=== PATIENT | female | born 1965 | race Caucasian/White ===

== ENCOUNTER 2016-12-20 15:17 | Emergency (ER) | payer OTHER ==
[~2016-12-20] VITALS: Ht 172.7 cm; Wt 63.5 kg
[~2016-12-20 15:17] MED LIST: CEFTIN500 MG PO; CYMBALTA30 MG PO; LOPRESSOR 25MG.25 MG PO; MULTI VITAMINS1 TAB PO; NAPROXEN SODIU500 MG PO; PHENAZOPYRIDIN200 MG PO; PRILOSEC20 M1 PO; VITAMIN C500 M3; XANAX 0.25MG0.25 MG PO; ZOFRAN ODT4 MG PO
[2016-12-20] MEDS ORDERED: NEURONTIN 300M300 MG PO (15:33)
[2016-12-20] MEDS ORDERED: IMITREX 25MG TA25 MG PO (15:34)
[2016-12-20 15:35] LABS: URINE BILIRUBIN - DIPSTICK NEGATIVE (NEG); URINE BLOOD NEGATIVE (NEG)
[2016-12-20] MEDS ORDERED: FLEXERIL10 MG PO (15:35)
--- OUTSIDE RECORDS SUMMARY | 2016-12-20 15:42 | External Medical Summary Rpt ---
Author Author [facility] Organization [facility] Address Unknown Phone Unavailable Care Team Providers Care Rat Exterminator Name Role Phone PHY, UNKNOWN PCP Unavailable Encounter [facility] [id number] Date(s): 10/12/16 - 10/12/[address] [place] [address]- Discharge Diagnosis: Migraine Discharge Diagnosis: Photophobia Discharge Diagnosis: Nausea Discharge Diagnosis: Headache Discharge Disposition: OP Self Care or Home Attending Physician: BLANK SIMS MD-EMR Admitting Physician: BLANK SIMS MD-EMR Referring Physician: BLANK SIMS MD-EMR Reason for Visit MIGRAINE, UNSP, NOT INTRACTABLE, WITHOUT STATUS MIGRAINOSUS Vital Signs Most recent 1 2 3 to oldest [Reference Range]: Temperature Oral Source (10/12/16 3:47 PM) Temperature Fahrenheit Mode (10/12/16 3:47 PM) Temperature, 98.3 Deg F Fahrenheit (10/12/16 3:47 PM) [96.8-99.7 Deg F] Clinical 36.8 Deg C Temperature, (10/12/16 3:47 PM) C Peripheral 90 bpm (10/12/16 84 bpm 77 bpm Pulse Rate 11:25 PM) (10/12/16 7:31 PM) (10/12/16 3:47 PM) [60-100 bpm] Respiratory 16 Breaths/Min 16 Breaths/Min 17 Breaths/Min Rate [14-20 (10/12/16 11:25 (10/12/16 7:31 PM) (10/12/16 3:47 PM) Breaths/Min] PM) Blood 121/60 mmHg 127/60 mmHg 115/64 mmHg Pressure (10/12/16 11:25 (10/12/16 7:31 PM) (10/12/16 3:47 PM) [90-140/60-9 PM) 0 mmHg] Mean 80 mmHg (10/12/16 82 mmHg Arterial 11:25 PM) (10/12/16 7:31 PM) Pressure (MAP) Oxygen 100 % (10/12/16 100 % 100 % Saturation 11:25 PM) (10/12/16 7:31 PM) (10/12/16 3:47 PM) [94-100 %] Oxygen Room air (10/12/16 Room air Room air Therapy Mode 11:25 PM) (10/12/16 7:31 PM) (10/12/16 3:47 PM) Problem List No data available for this section Allergies, Adverse Reactions, Alerts No Known Medication Allergies Medications ondansetron (Zofran ODT 4 mg oral tablet, disintegrating)1 Tab, Oral, Three Times A Day, 3 Day(s), Refills: 0Ordering provider: CONSTANZA MONTES MD-EMR Results No data available for this section Immunizations No data available for this section Procedures No data available for this section Social History No data available for this section Assessment and Plan No data available for this section Hospital Discharge Instructions Patient EducationNausea, Adult Recurrent Migraine Headache
--- OUTSIDE RECORDS SUMMARY | 2016-12-20 15:42 | External Medical Summary Rpt ---
Author Author [facility] Organization [facility] Address Unknown Phone Unavailable Care Team Providers Care Marketing Strategist Name Role Phone PHY, UNKNOWN PCP Unavailable Encounter [facility] [id number] Date(s): 10/12/16 - 10/12/[address] [facility] [place] [address]- [phone] Discharge Diagnosis: Migraine Discharge Diagnosis: Photophobia Discharge [...]
--- OUTSIDE RECORDS SUMMARY | 2016-12-20 15:43 | External Medical Summary Rpt | CCD ---
Author Author , ANGELO STEPHENS Address Unknown Phone [email or web address] Purpose Continuity of Care Document - through 2016 Problems Code Diagnosis DOS Provider Status G43.909 MIGRAINE, UNSP, NOT INTRACTABLE , WITHOUT STATUS MIGRAINOSUS
--- OUTSIDE RECORDS SUMMARY | 2016-12-20 15:43 | External Medical Summary Rpt | CCD ---
Author Author , ANGELO STEPHENS Address Unknown Phone [email or web address] Purpose Continuity of Care Document - through 2016 Problems Code Diagnosis DOS Provider Status G43.909 MIGRAINE, UNSP, NOT INTRACTABLE , WITHOUT STATUS MIGRAINOSUS
--- OUTSIDE RECORDS SUMMARY | 2016-12-20 15:44 | External Medical Summary Rpt | CCD ---
Demographics Preferred Language Turkish Marital Status Unknown Hoahaoism Affiliation Unknown Race Unknown Ethnic Group Unknown Author Author , ANGELO STEPHENS Address Unknown Phone Immunization No patient found.
--- OUTSIDE RECORDS SUMMARY | 2016-12-20 15:44 | External Medical Summary Rpt ---
Author Author ANGELO Palma, [employer] Organization [employer] Address Unknown Phone Unavailable
--- OUTSIDE RECORDS SUMMARY | 2016-12-20 15:44 | External Medical Summary Rpt | CCD ---
Demographics Preferred Language Mohawk Marital Status Unknown Episcopal Affiliation Unknown Race Unknown Ethnic Group Unknown Author Author , ANGELO STEPHENS Address Unknown Phone Immunization No patient found.
[2016-12-20 15:48] LABS: URINE SQUAMOUS CELLS OCC #/hpf (0-5)
--- NOTE | 2016-12-20 15:58 | Emergency Room Report ---
History of Present Illness Time Seen by 1524 Presenting Problem in Triage Pt arrived:Walked Presenting Problem:pt c/o of RIGHT ABDOMINAL PAIN THAT RADIATES ACROSS THE LOWER PORTION OF HER ABDOMNEN. [facility] [place] NEGATIVE FOR UTI BUT WAS REFERRED TO ER. Onset of symptoms date/time:12/20/16 or onset unknown for: Treatment Prior to Arrival: PT WAS SEEN AT AN URGENT TREATMENT AND WAS REFERRED TO ER APPLICATION SUPPORT TECHNICIAN Provided by:SELF Sepsis Risk Assessment: Temp: 98.7 B/P: 144/78 MAP: 100 Pulse: 86 Resp: 18 Recent fever? N Clinical Suspician of Infection? N Mental Status: 1 - Regular (Normal Baseline) Sepsis Risk:Low Sepsis Risk Have you (or family members/close friends) recently traveled outside the [place]? N If Yes, where/when: Have you had exposure to infectious disease within the past month? N TB? Other? Specify: R flank pain, intermittently since last night, with difficulty initiating stream ; pain now in RLQ radiating to urethral meatus. No hematuria, Seen at [facility] and referred to ED as did not have UTI per patient report to us. No fever; having some nausea but no vomiting; no change in stool habits; no blood from above or below; has intermittent migraine hx but no cephalgia today. No fever or chills. ALLERGIES Coded Allergies: eletriptan (From RELPAX) (TIGHTNESS AND TINGLING IN THROAT 05/16/16) tramadol (INSTRUCTED TO NOT TAKE R/T SEIZURE HX 05/16/16) Home Medications Reported Medications Gabapentin (Neurontin 300MG) 300 MG PO QID Sumatriptan Succinate (Imitrex 25MG Tablet) 50 MG PO ONCE PRN FOR HEADACHES Cyclobenzaprine Hcl (Flexeril) 5 MG PO TID PRN MUSCLE RELAXANT OMEPRAZOLE MAGNESIUM (Prilosec 20MG) 20 MG PO DAILY #30 TAB DULOXETINE HCL (Cymbalta 30MG) 30 MG PO DAILY Metoprolol Tartrate (Lopressor) 25 MG PO DAILY Alprazolam (Xanax 0.25MG) 0.25 MG PO TID Ascorbic Acid (Vitamin C) Multiple Vitamin (Multi Vitamins) 1 TAB PO DAILY History Medical History General CAD? No Angina: No [place]: No Hypertension? No Hyperlipidemia? No CHF? No DVT? No PE? No COPD? No Asthma? No Anemia? No GERD? Yes Gastric ulcers? No GI Bleed? No Hernia? Yes Thyroid Problems? No Hypothyroidism? No CVA? No Seizures? Yes Diabetes? No Renal Insuffiency? No End Stage Renal Disease? No UTI? No Stones? No BPH? No GB Disease: No Nephritic Syndrome? No Asplenia? No Hepatitis? No Sickle Cell Disease? No Arthritis? Yes Migraines? Yes Cataracts? No Glaucoma? No MRSA? No HIV? No TB? No Anxiety? No Depression? No Cancer? No More? Yes Additional hx: MITRAL VALVE PROLAPSE Immunization Hx DT/Tetanus Unknown Surgical Hx Previous Surgery?Y TONSILLECTOMY 1970 [employer] Hx LMP menopause Social History Smoking Hx Smoker: Never Smoker Tobacco: No Alcohol Alcohol: No Review of Systems All Other Systems Reviewed and Negative Gastrointestinal see HPI Genitourinary see HPI (post menopausal). Physical Exam Vital Signs Vital Signs Date Time Temp Pulse Resp B/P Pulse O2 O2 Flow FiO2 Ox Delivery Rate 12/20 192 99.2 101 18 129/60 100 12/20 1840 80 16 140/60 99 12/20 1622 16 12/20 1525 98.7 86 18 144/78 99 General Appearance normal appearance, WD/WN, mild distress Eye Exam - bilateral eye normal exam, bilateral eye PERRL Neck normal inspection, non-tender, supple, full range of motion Respiratory Status Yes: trachea midline, chest symmetrical, non tender chest. No: respiratory distress, tender on palpation, use of accessory muscles, pain on inspiration, pain on expiration, productive cough. Lung Sounds bilateral: normal breath sounds, lungs clear. Cardiovascular normal exam, regular rate/rhythm, no peripheral edema, no gallop, no JVD, no murmur, no rub, normal peripheral pulses Gastrointestinal normal bowel sounds, normal exam, non tender, soft, no organomegaly, no pulsatile mass, no guarding, no rebound Back normal inspection, no CVA tenderness, no vertebral tenderness, bowel/ bladder continent, gait normal, strt leg raising(L)-NML, strt leg raising(R)-NML Extremities normal range of motion Strength 5 Upper Ext (L), 5 Upper Ext (R), 5 Lower Ext (L), 5 Lower Ext (R) Neurologic alert, normal exam, no motor/sensory deficits, abnormal cerebellar tests Glascow Coma Scale Glascow Coma Scale Response Value EYE response: 4 Spontaneously 4 MOTOR response: 6 OBEYS 6 VERBAL response: 5 Oriented & Converses 5 Total 15 Reflexes Reflexes normal Yes DTR 2+ ankle (R), 2+ ankle (L) Skin intact, normal color, no rash cons.w/shingles Medical Decision Making LABS/Meds/Orders Pt receiving controlled substance in ED? Yes Francisco was queried for this patient? Yes Reference #: [id number] Risks/benefits of using a controlled substance for treatment were discussed w/pt by me Results/Orders Laboratory Tests 12/20/16 1640: Sodium 138, Potassium 3.7, Chloride 101, Carbon Dioxide 28, BUN 11, Creatinine 0.7, Estimated Creat Clear 94, Estimated GFR (MDRD) 88, Glucose 99, Calcium 8.6, Total Bilirubin 0.4, AST 35, ALT 56, Alkaline Phosphatase 79, Total Protein 7.4, Albumin 3.9, Globulin 3.5 H, Albumin/Globulin Ratio 1.1, Lipase 157, WBC 6.0, RBC 4.51, Hgb 14.2, Hct 43.1, MCV 95.5, RDW 12.4, Plt Count 170, MPV 7.8, Gran % 69.3, Gran # 4.1, Lymphocytes % 21.1, Monocytes % 5.2, Eosinophils % 3.9, Basophils % 0.5, Lymphocytes # 1.3, Monocytes # 0.3, Eosinophils # 0.2, Basophils # 0.0, PUBS MCHC 32.9, MCH 31.5 H 12/20/16 1520: Urine Color STRAW, Urine Appearance CLEAR, Urine pH 6.5, Ur Specific [place] <= 1.005, Urine Protein NEGATIVE, Urine Ketones NEGATIVE, Urine Blood NEGATIVE, Urine Nitrate NEGATIVE, Urine Bilirubin NEGATIVE, Urine Urobilinogen 0.2, Ur Leukocyte Esterase NEGATIVE, Urine RBC NONE, Urine WBC NONE, Ur Squamous Epith Cells OCC, Urine Bacteria TRACE, Urine Glucose NEGATIVE Current Medication Orders Sig/Miryam Start time Last Medication Dose Route Stop Time Status Admin Dicyclomine HCl 10 MG ONCE ONE 12/20 2014 AC PO 12/21 2015 Diatrizoate Meglum/ 30 ML ONCE ONE 12/20 1700 DC 12/20 Diatrizoate Sod PO 12/20 1701 1652 Diatrizoate Meglum/ 0 .STK-MED ONE 12/20 1648 DC Diatrizoate Sod .ROUTE Ketorolac 30 MG ONCE ONE 12/20 1630 DC 12/20 Tromethamine IM 12/20 1631 1622 Ondansetron HCl 4 MG ONCE ONE 12/20 1630 DC 12/20 IM 12/20 1631 1622 Ondansetron HCl 0 .STK-MED ONE 12/20 1616 DC .ROUTE Ketorolac 0 .STK-MED ONE 12/20 1615 DC Tromethamine .ROUTE Ketorolac 30 MG ONCE ONE 12/20 1600 CAN Tromethamine IV 12/20 1601 Ondansetron HCl 4 MG ONCE ONE 12/20 1600 CAN IV 12/20 1601 Orders Procedure Date/time Status DIET-NOTHING BY MOUTH 12/[address] ABD & PELVIS W/ CONTRAST 12/[address] ABD W/RLQ PAIN REQ 12/20 1649 Active LIPASE 12/20 1542 Complete CBC WITH AUTO DIFF 12/20 1542 Complete CHEM 12 PROFILE 12/[address] ABD/PELVIS REQ 12/20 1541 Complete IV SALINE LOCK 12/20 1541 Active URINALYSIS/COMPLETE 12/20 1525 Complete XRAY/CT/US XRAY/CT/US 1 CT abdomen, pelvis CT interpretation by reviewed by me (report reviewed) Time results known: 1648 CT Results abnormal, feces throughout colon hiding appendix with contrast recommended if clinical indication; no calculi XRAY/CT/US 2 CT abdomen, pelvis CT interpretation by reviewed by me ([facility] report reviewed) Time results known: 2001 CT Results normal/NAD, CT with IV contrast: no acute findings; no evidence of appendicitis Progress ED Progress Notes 1 Date 12/20/16 Time 1650 Comment Recheck abdomen patient has RLQ abdominal pain, worse with deep palpation but neg psoas, neg obturator sign. Will CT w/ PO contrast to image appendix as not seen on CT w/o contrast. ED Progress Notes 2 Date 12/20/[address] Time [address] scan with IV and PO contrast: nl appendix. Pt resting comfortably and will f/u with PCP in 1 d and do clear liquids overnight. Departure Departure Time of Disposition 2004 Disposition DC Home or Self Care(routine) Clinical Impression Primary Impression: RLQ abdominal pain Condition STABLE Referrals Krishna CORTEZ,Michelle Mathews (Family) Patient Instructions DI for Abdominal Pain-Adult Additional Instructions Clear liquids overnight, see Dr. Keller for follow up recheck abdomen in one day , Rx Bentyl Discharge Counseling Counseled pt/family regarding diagnosis, test results, medications/RX, home care, follow up needs Prescriptions Current Visit Scripts DICYCLOMINE HCL (Bentyl) 10 MG PO Q8HP PRN cramping #10 CAP ED Critical Care Critical Care No at 2016
--- NOTE | 2016-12-20 15:58 | Emergency Room Report ---
History of Present Illness Time Seen by 1524 Presenting Problem in Triage Pt arrived:Walked Presenting Problem:pt c/o of RIGHT ABDOMINAL PAIN THAT RADIATES ACROSS THE LOWER PORTION OF HER ABDOMNEN. [facility] [place] NEGATIVE FOR UTI BUT WAS REFERRED TO ER. 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 N Clinical Suspician of Infection? N Mental Status: 1 - Regular (Normal Baseline) Sepsis Risk:Low Sepsis Risk Have you (or family members/close friends) recently traveled outside the [place]? N If Yes, where/when: Have you had exposure to infectious disease within the past month? N TB? Other? Specify: R flank pain, intermittently since last night, with difficulty initiating stream ; pain now in RLQ radiating to urethral meatus. No hematuria, Seen at [facility] and referred to ED as did not have UTI per patient report to us. No fever; having some nausea but no vomiting; no change in stool habits; no blood from above or below; has intermittent migraine hx but no cephalgia today. No fever or chills. ALLERGIES Coded Allergies: eletriptan (From RELPAX) (TIGHTNESS AND TINGLING IN THROAT 05/16/16) tramadol (INSTRUCTED TO NOT TAKE R/T SEIZURE HX 05/16/16) Home Medications Reported Medications Gabapentin (Neurontin 300MG) 300 MG PO QID Sumatriptan Succinate (Imitrex 25MG Tablet) 50 MG PO ONCE PRN FOR HEADACHES Cyclobenzaprine Hcl (Flexeril) 5 MG PO TID PRN MUSCLE RELAXANT OMEPRAZOLE MAGNESIUM (Prilosec 20MG) 20 MG PO DAILY #30 TAB DULOXETINE HCL (Cymbalta 30MG) 30 MG PO DAILY Metoprolol Tartrate (Lopressor) 25 MG PO DAILY Alprazolam (Xanax 0.25MG) 0.25 MG PO TID Ascorbic Acid (Vitamin C) Multiple Vitamin (Multi Vitamins) 1 TAB PO DAILY History Medical History General CAD? No Angina: No [place]: No Hypertension? No Hyperlipidemia? No CHF? No DVT? No PE? No COPD? No Asthma? No Anemia? No GERD? Yes Gastric ulcers? No GI Bleed? No Hernia? Yes Thyroid Problems? No Hypothyroidism? No CVA? No Seizures? Yes Diabetes? No Renal Insuffiency? No End Stage Renal Disease? No UTI? No Stones? No BPH? No GB Disease: No Nephritic Syndrome? No Asplenia? No Hepatitis? No Sickle Cell Disease? No Arthritis? Yes Migraines? Yes Cataracts? No Glaucoma? No MRSA? No HIV? No TB? No Anxiety? No Depression? No Cancer? No More? 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 Physical Exam Vital Signs Vital Signs Date Time Temp Pulse Resp B/P Pulse O2 O2 Flow FiO2 Ox Delivery Rate 12/20 192 99.2 101 18 129/60 100 12/20 1840 80 16 140/60 99 12/20 1622 16 12/20 1525 98.7 86 18 144/78 99 General Appearance normal appearance, WD/WN, mild distress Eye Exam - bilateral eye normal exam, bilateral eye PERRL Neck normal inspection, non-tender, supple, full range of motion Respiratory Status Yes: trachea midline, chest symmetrical, non tender chest. No: respiratory distress, tender on palpation, use of accessory muscles, pain on inspiration, pain on expiration, productive cough. Lung Sounds bilateral: normal breath sounds, lungs clear. Cardiovascular normal exam, regular rate/rhythm, no peripheral edema, no gallop, no JVD, no murmur, no rub, normal peripheral pulses Gastrointestinal normal bowel sounds, normal exam, non tender, soft, no organomegaly, no pulsatile mass, no guarding, no rebound Back normal inspection, no CVA tenderness, no vertebral tenderness, bowel/ bladder continent, gait normal, strt leg raising(L)-NML, strt leg raising(R)-NML Extremities normal range of motion Strength 5 Upper Ext (L), 5 Upper Ext (R), 5 Lower Ext (L), 5 Lower Ext (R) Neurologic alert, normal exam, no motor/sensory deficits, abnormal cerebellar tests Glascow Coma Scale Glascow Coma Scale Response Value EYE response: 4 Spontaneously 4 MOTOR response: 6 OBEYS 6 VERBAL response: 5 Oriented & Converses 5 Total 15 Reflexes Reflexes normal Yes DTR 2+ ankle (R), 2+ ankle (L) Skin intact, normal color, no rash cons.w/shingles Medical Decision Making LABS/Meds/Orders Pt receiving controlled substance in ED? Yes Francisco was queried for this patient? Yes Reference #: [id number] Risks/benefits of using a controlled substance for treatment were discussed w/pt by me Results/Orders Laboratory Tests 12/20/16 1640: Sodium 138, Potassium 3.7, Chloride 101, Carbon Dioxide 28, BUN 11, Creatinine 0.7, Estimated Creat Clear 94, Estimated GFR (MDRD) 88, Glucose 99, Calcium 8.6, Total Bilirubin 0.4, AST 35, ALT 56, Alkaline Phosphatase 79, Total Protein 7.4, Albumin 3.9, Globulin 3.5 H, Albumin/Globulin Ratio 1.1, Lipase 157, WBC 6.0, RBC 4.51, Hgb 14.2, Hct 43.1, MCV 95.5, RDW 12.4, Plt Count 170, MPV 7.8, Gran % 69.3, Gran # 4.1, Lymphocytes % 21.1, Monocytes % 5.2, Eosinophils % 3.9, Basophils % 0.5, Lymphocytes # 1.3, Monocytes # 0.3, Eosinophils # 0.2, Basophils # 0.0, PUBS MCHC 32.9, MCH 31.5 H 12/20/16 1520: Urine Color STRAW, Urine Appearance CLEAR, Urine pH 6.5, Ur Specific [place] <= 1.005, Urine Protein NEGATIVE, Urine Ketones NEGATIVE, Urine Blood NEGATIVE, Urine Nitrate NEGATIVE, Urine Bilirubin NEGATIVE, Urine Urobilinogen 0.2, Ur Leukocyte Esterase NEGATIVE, Urine RBC NONE, Urine WBC NONE, Ur Squamous Epith Cells OCC, Urine Bacteria TRACE, Urine Glucose NEGATIVE Current Medication Orders Sig/Miryam Start time Last Medication Dose Route Stop Time Status Admin Dicyclomine HCl 10 MG ONCE ONE 12/20 2014 AC PO 12/21 2015 Diatrizoate Meglum/ 30 ML ONCE ONE 12/20 1700 DC 12/20 Diatrizoate Sod PO 12/20 1701 1652 Diatrizoate Meglum/ 0 .STK-MED ONE 12/20 1648 DC Diatrizoate Sod .ROUTE Ketorolac 30 MG ONCE ONE 12/20 1630 DC 12/20 Tromethamine IM 12/20 1631 1622 Ondansetron HCl 4 MG ONCE ONE 12/20 1630 DC 12/20 IM 12/20 1631 1622 Ondansetron HCl 0 .STK-MED ONE 12/20 1616 DC .ROUTE Ketorolac 0 .STK-MED ONE 12/20 1615 DC Tromethamine .ROUTE Ketorolac 30 MG ONCE ONE 12/20 1600 CAN Tromethamine IV 12/20 1601 Ondansetron HCl 4 MG ONCE ONE 12/20 1600 CAN IV 12/20 1601 Orders Procedure Date/time Status DIET-NOTHING BY MOUTH 12/[address] ABD & PELVIS W/ CONTRAST 12/[address] ABD W/RLQ PAIN REQ 12/20 1649 Active LIPASE 12/20 1542 Complete CBC WITH AUTO DIFF 12/20 1542 Complete CHEM 12 PROFILE 12/[address] ABD/PELVIS REQ 12/20 1541 Complete IV SALINE LOCK 12/20 1541 Active URINALYSIS/COMPLETE 12/20 1525 Complete XRAY/CT/US XRAY/CT/US 1 CT abdomen, pelvis CT interpretation by reviewed by me (report reviewed) Time results known: 1648 CT Results abnormal, feces throughout colon hiding appendix with contrast recommended if clinical indication; no calculi XRAY/CT/US 2 CT abdomen, pelvis CT interpretation by reviewed by me ([facility] report reviewed) Time results known: 2001 CT Results normal/NAD, CT with IV contrast: no acute findings; no evidence of appendicitis Progress ED Progress Notes 1 Date 12/20/16 Time 1650 Comment Recheck abdomen patient has RLQ abdominal pain, worse with deep palpation but neg psoas, neg obturator sign. Will CT w/ PO contrast to image appendix as not seen on CT w/o contrast. ED Progress Notes 2 Date 12/20/16 Time [address] scan with IV and PO contrast: nl appendix. Pt resting comfortably and will f/u with PCP in 1 d and do clear liquids overnight. Departure Departure Time of Disposition 2004 Disposition DC Home or Self Care(routine) Clinical Impression Primary Impression: RLQ abdominal pain Condition STABLE Referrals Krishna CORTEZ,Michelle Mathews (Family) Patient Instructions DI for Abdominal Pain-Adult Additional Instructions Clear liquids overnight, see Dr. Keller for follow up recheck abdomen in one day , Rx Bentyl Discharge Counseling Counseled pt/family regarding diagnosis, test results, medications/RX, home care, follow up needs Prescriptions Current Visit Scripts DICYCLOMINE HCL (Bentyl) 10 MG PO Q8HP PRN cramping #10 CAP ED Critical Care Critical Care No at 2016
--- NOTE | 2016-12-20 16:39 | RADIOLOGY REPORT PS360 ---
CT ABD PELVIS W/O CONTRAST CLINICAL INDICATION: Right lower quadrant pain RLQ PAIN ORDERING PHYSICIAN: Rina Colon MD PATIENT AGE: 51 years COMPARISON: None TECHNIQUE: Axial images obtained with sagittal and coronal reformats. PROCEDURE: Oral Contrast: None IV Contrast: None . FINDINGS: No acute finding in the lung bases. The liver, gallbladder, spleen, adrenal glands, and pancreas have an unremarkable unenhanced CT appearance. No obstructing renal or ureteral calculi. No hydronephrosis. The appendix is not clearly delineated. There are however no secondary signs of appendicitis. If symptoms persist, consider follow-up with IV and oral contrast. No intestinal obstruction or free air is evident. There is a mild amount retained colonic feces Unremarkable appearing urinary bladder. There are multiple unopacified bowel loops present within the abdomen/pelvis which could obscure or mimic pathology. If symptoms persists, consider repeating exam with IV and oral contrast administration . No acute bony findings. No evidence of diverticulitis. There is a moderate amount retained colonic feces. IMPRESSION: 1. Mild amount retained colonic feces. 2. There are multiple unopacified bowel loops present within the abdomen/pelvis which could obscure or mimic pathology. The appendix is not clearly delineated. There are however no secondary signs of appendicitis. If symptoms persists, consider repeating exam with IV and oral contrast administration
[2016-12-20 16:53] LABS: HEMOGLOBIN 14.2 g/dL (12.2-16.2); LYMPH # 1.3 K/mm3 (0.7-4.5); LYMPH % 21.1 % (10-50.0)
[2016-12-20] MEDS ORDERED: BENTYL10 M1 PO (20:10)
[2016-12-20 20:38] VITALS: BP 118/77
--- NOTE | 2016-12-21 06:56 | RADIOLOGY REPORT PS360 ---
CT ABD PELVIS W/ CONTRAST CLINICAL INDICATION: Right lower quadrant pain RLQ PAIN ORDERING PHYSICIAN: Rina Colon MD PATIENT AGE: 51 years COMPARISON: 12/20/2016 TECHNIQUE: Axial images obtained with sagittal and coronal reformats. PROCEDURE: Oral Contrast: Oral Redicat IV Contrast: 75 mL [id number] . FINDINGS: Lower thorax: No acute finding ABDOMEN: Liver: At least 2 small isodensity's one in the right hepatic lobe laterally and one in the hepatic dome centrally measuring less than 5 mm too small to categorize statistically probably benign. Gallbladder: Nondistended. No radio opaque stones. Pancreas: No masses or peripancreatic fluid collections. Spleen: Unremarkable. Adrenals: Unremarkable Kidneys/ureters: No masses. No renal calculi. No hydronephrosis. No perinephric fluid collections. No ureteral dilatation or obvious ureteral calculi. Stomach bowel: There is a moderate amount retained colonic feces. No evidence of small bowel obstruction Appendix: No evidence of appendicitis. PELVIS: Reproductive: Unremarkable Bladder: Nondistended. No obvious stones or masses. ABDOMEN & PELVIS: Peritoneum: No abnormal fluid collections. No obvious inflammatory changes. No free air. Lymph nodes: No enlarged lymph nodes apparent. Vasculature: No evidence of abdominal aortic aneurysm. No retroperitoneal hemorrhage evident. Bones: No acute fracture IMPRESSION: 1. No acute intra-abdominal or pelvic pathology apparent. 2. Mild constipation
== END 2016-12-20 20:39 | disposition home or self-care (01) ==
LOC: ER 15:17
PROVIDERS: Emergency Medicine
DX: R10.31 Right lower quadrant pain (principal); K21.9 Gastro-esophageal reflux disease without esophagitis; R56.9 Unspecified convulsions
CPT/HCPCS: J2405; Q9967